=== PATIENT | male | born 1995 | race African-American/Black ===

== ENCOUNTER 2020-07-22 22:22 | Emergency (ER) | payer MEDICAID ==
[~2020-07-22] VITALS: Ht 175.3 cm; Wt 68.0 kg
[2020-07-22] MEDS ORDERED: IBUPROFEN 600MG TABLET PO ONE (22:45)
[2020-07-22] MEDS ORDERED: LIDOCAINE HCL/PF 1% 10 MG/ML 5ML VIAL IJ ONE (22:45)
[2020-07-22] MEDS ORDERED: BACITRACIN ZINC OINT UDPKT TOP ONE (22:45)
[2020-07-22] MEDS ORDERED: BO1 TP (23:27)
[2020-07-22] MEDS ORDERED: IBUP-2029 MT (23:27)
[2020-07-22] MEDS ORDERED: CEPH500T MT (23:27)
[2020-07-22 23:40] VITALS: BP 138/72
== END 2020-07-22 23:49 | disposition home or self-care (01) ==
LOC: ER 22:22
DX: L60.0 Ingrowing nail (principal)
CPT/HCPCS: 11730; 99283; J3490

== ENCOUNTER 2021-05-23 09:03 | Emergency (ER) | payer MEDICAID ==
[~2021-05-23] VITALS: Ht 177.8 cm; Wt 75.0 kg
[~2021-05-23 09:03] MED LIST: BO1 TP; CEPH500T MT; IBUP-2029 MT
[2021-05-23 09:06] VITALS: BP 155/84
[2021-05-23] MEDS ORDERED: LIDOCAINE HCL/EPINEPHRINE 1%-EPI 1:100,000 10 ML VIAL INFIL SCH (10:00)
[2021-05-23] MEDS ORDERED: IBUPROFEN 800MG TABLET PO ONE (10:00)
[2021-05-23] MEDS ORDERED: LIDOCAINE HCL/EPINEPHRINE 1%-EPI 1:100,000 30 ML VIAL INFIL ONE (10:00)
[2021-05-23] MEDS ORDERED: IBUP-2029 MT (10:58)
[2021-05-23] MEDS ORDERED: CEPH500T MT (10:58)
[2021-05-23] MEDS ORDERED: SULF1TAB48 MT (10:58)
== END 2021-05-23 11:37 | disposition home or self-care (01) ==
LOC: ER 09:11
DX: Z89.231 Acquired absence of right shoulder (principal)
CPT/HCPCS: 10060; 99283

== ENCOUNTER 2021-06-13 16:24 | Emergency (ER) | payer MEDICAID ==
[~2021-06-13] VITALS: Ht 177.8 cm; Wt 73.0 kg
[~2021-06-13 16:24] MED LIST changes: +SULF1TAB48 MT
[2021-06-13 16:31] VITALS: BP 116/81
[2021-06-13] MEDS ORDERED: SULF1TAB48 MT (16:51)
[2021-06-13] MEDS ORDERED: CEPH500T MT (16:51)
== END 2021-06-13 17:24 | disposition home or self-care (01) ==
LOC: ER 16:24
DX: L02.413 Cutaneous abscess of right upper limb (principal)
CPT/HCPCS: 10060; 99283

== ENCOUNTER 2022-01-06 00:32 | Emergency (ER) | payer BC, MEDICAID ==
[~2022-01-06] VITALS: Ht 177.8 cm; Wt 74.9 kg
[2022-01-06 00:45] VITALS: BP 121/78
[2022-01-06] MEDS ORDERED: CEFTRIAXONE SODIUM 500 MG/VIAL IM ONE (01:30)
[2022-01-06] MEDS ORDERED: DOXYCYCLINE HYCLATE 100MG CAPSULE PO ONE (01:30)
[2022-01-06] MEDS ORDERED: DIF15 MT (01:30)
[2022-01-06] MEDS ORDERED: DOXY-326 MT (01:30)
[2022-01-06 02:29] LABS: CLARITY URINE CLOUDY (CLEAR); COLOR URINE YELLOW (YELLOW); KETONES URINE TRACE (NEGATIVE); LEUKOCYTE ESTERASE URINE 2+ (NEGATIVE); NITRITE URINE NEGATIVE (NEGATIVE); OCCULT BLOOD URINE NEGATIVE (NEGATIVE); PH URINE 8.5 (4.5-8.0); PROTEIN URINE NEGATIVE (NEGATIVE)
[2022-01-08 04:06] LABS: NEISSERIA GONORRHOEAE NAA Positive (Negative)
== END 2022-01-06 02:30 | disposition home or self-care (01) ==
LOC: ER 00:32
DX: R36.9 Urethral discharge, unspecified (principal)
CPT/HCPCS: 81003; 87491; 87591; 96372; 99283; J0696

== ENCOUNTER 2023-06-01 15:33 | Emergency (ER) | payer MEDICAID ==
[~2023-06-01] VITALS: Ht 177.8 cm; Wt 78.0 kg
[~2023-06-01 15:33] MED LIST changes: +DIF15 MT; +DOXY-456 MT
[2023-06-01 15:42] VITALS: BP 136/87; TEMP 98.1; O2SAT 99
[2023-06-01 15:45] VITALS: PULSE 74; RESP 16
[2023-06-01] MEDS ORDERED: CARB-173 EACH EAR (18:40)
== END 2023-06-01 18:51 | disposition home or self-care (01) ==
LOC: ER 15:49
DX: H61.23 Impacted cerumen, bilateral (principal); Z79.899 Other long term (current) drug therapy
CPT/HCPCS: 69210; 99282; 99284